=== PATIENT | female | born 1980 | race Caucasian/White ===

== ENCOUNTER 2016-12-29 21:26 | Emergency (ER) | payer MEDICARE, MEDICAID ==
[~2016-12-29 21:26] MED LIST: CYMBALTA60 MG PO; MOBIC15 MG PO; PROTONIX40 MG PO; ULTRAM50 MG PO; XANAX0.5 MG PO
== END 2016-12-29 22:50 | disposition short-term general hospital (02) ==
LOC: ER 21:26
DX: K59.00 Constipation, unspecified (principal); N39.0 Urinary tract infection, site not specified; K21.9 Gastro-esophageal reflux disease without esophagitis; Z79.899 Other long term (current) drug therapy; Z88.1 Allergy status to other antibiotic agents; F17.210 Nicotine dependence, cigarettes, uncomplicated
CPT/HCPCS: J1885

== ENCOUNTER 2016-12-30 20:21 | Emergency (ER) | payer MEDICARE, MEDICAID ==
[~2016-12-30] VITALS: Ht 147.3 cm; Wt 79.4 kg
== END 2016-12-30 22:58 | disposition short-term general hospital (02) ==
LOC: ER 20:21
DX: K59.00 Constipation, unspecified (principal); F31.9 Bipolar disorder, unspecified; K21.9 Gastro-esophageal reflux disease without esophagitis; F17.210 Nicotine dependence, cigarettes, uncomplicated; Z88.1 Allergy status to other antibiotic agents; Z79.899 Other long term (current) drug therapy

== ENCOUNTER 2017-01-20 18:03 | Emergency (ER) | payer MEDICARE, MEDICAID ==
[~2017-01-20] VITALS: Ht 154.9 cm; Wt 83.0 kg
[2017-01-20] MEDS ORDERED: LINZESS145 MCG PO (21:03)
[2017-01-20] MEDS ORDERED: REGLAN10 MG PO (21:04)
[2017-01-20] MEDS ORDERED: MILK OF MAGNESI30 ML PO (21:05)
[2017-01-20] MEDS ORDERED: DULCOLAX10 MG RECTAL (21:05)
[2017-01-20] MEDS ORDERED: MIRALAX17 GM PO (21:06)
[2017-01-20] MEDS ORDERED: AMITIZA24 MCG PO (21:06)
== END 2017-01-20 20:55 | disposition short-term general hospital (02) ==
LOC: ER 18:03
DX: R10.11 Right upper quadrant pain (principal); R10.13 Epigastric pain; R10.32 Left lower quadrant pain; R11.0 Nausea; K59.09 Other constipation; Z88.1 Allergy status to other antibiotic agents
CPT/HCPCS: J1170; J1885; J2405; J2930

== ENCOUNTER 2017-01-23 20:45 | Emergency (ER) | payer MEDICARE, MEDICAID ==
[~2017-01-23 20:45] MED LIST changes: +AMITIZA24 MCG PO; +DULCOLAX10 MG RECTAL; +LINZESS145 MCG PO; +MILK OF MAGNESI30 ML PO; +MIRALAX17 GM PO; +REGLAN10 MG PO
== END 2017-01-23 23:15 | disposition short-term general hospital (02) ==
LOC: ER 20:45
DX: K59.00 Constipation, unspecified (principal); D72.829 Elevated white blood cell count, unspecified; F17.210 Nicotine dependence, cigarettes, uncomplicated; Z88.1 Allergy status to other antibiotic agents; Z79.899 Other long term (current) drug therapy; Z98.1 Arthrodesis status; Z98.890 Other specified postprocedural states